=== PATIENT | male | born 1980 | race Two or more races ===

== ENCOUNTER 2021-02-08 15:56 | Emergency (ER) | payer MEDICAID ==
[~2021-02-08] VITALS: Ht 188 cm; Wt 112.3 kg
[2021-02-08 17:28] VITALS: BP 124/74
== END 2021-02-08 17:31 | disposition home or self-care (01) ==
LOC: ED 17:00
DX: R10.31 Right lower quadrant pain (principal); R10.32 Left lower quadrant pain; R11.2 Nausea with vomiting, unspecified; R19.7 Diarrhea, unspecified
CPT/HCPCS: 99283